=== PATIENT | female | born 1975 | race Caucasian/White ===

== ENCOUNTER 2024-04-23 03:18 | Emergency (ER) | payer OTHER, MEDICAID, SELFPAY ==
--- NOTE | ~2024-04-23 | CT_ITS ---
History: Fall PROCEDURE: CT cervical spine without intravenous contrast. COMPARISON: None TECHNIQUE: Multiple contiguous axial images of the cervical spine were performed without the administration of i ntravenous contrast. DLP: 395 mGy-cm FINDINGS: Straightening and slight reversal of the normal curvature of the cervical spine is identified, likely muscular in origin. No acute fractures are present. The bilateral lung apices are unremarkable. No soft tissue abnormality is present. The airway is unremarkable. Impression: Straightening and slight reversal of the normal curvature of the cervical spine, likely muscular in o rigin. No acute fracture. Reviewed, dictated and finalized at location A. CE ENGINEER Impression: Straightening and slight reversal of the normal curvature of the cervical spine , likely muscular in origin. No acute fracture.
--- NOTE | ~2024-04-23 | CT_ITS ---
History: Trauma PROCEDURE: CT head without contrast. COMPARISON: None TECHNIQUE: Axial imaging of the head performed from the skull base to the vertex without IV contrast. Sagittal a nd coronal reformations obtained. DLP: 681 mGy-cm FINDINGS: The ventricles are normal in size, shape and position. There is no mass, mass effect or midline shift. There is no abnormal extra-axial fluid collection or intracranial hemorrhage. Visualized paranasal sinuses are clear. The mastoid air cells are well aerated. No acute displaced fractures within the overlying cranium. Right occipital scalp hematoma. Impression: Scalp hematoma without acute intracranial hemorrhage or suspicious mass effect. Reviewed, dictated and finalized at location A. NEERING WRITER Impression: Scalp hematoma without acute intracranial hemorrhage or suspicious mass effect.
[2024-04-23 03:25] VITALS: BP 134/98; PULSE 97; RESP 15; TEMP 36.6; O2SAT 100
--- NOTE | 2024-04-23 04:30 | ED_ITS ---
HPI - General Adult General Chief complaint: Fall Stated complaint: Fallx2, etoh, head injury Time Seen by Provider: 04/23/24 03:32 History of Present Illness HPI narrative: this is a 49-year-old female presenting ED after a ground level fall. Patient got intoxicated tonight drinking beers. She fell and struck her head without loss of consciousness. She then fell again striking the same spot causing a large hematoma with bleeding. She was then brought to the ED for evaluation. Patient denies any other complaints at this time. Related Data Home Medications ?Medication ?Instructions ?Recorded ?Confirmed ?Last Taken ?Type biotin 10,000 mcg capsule mcg PO DAILY 04/23/24 04/22/24 History cetirizine 10 mg tablet 10 mg PO DAILY PRN allergy symptoms 04/23/24 04/23/24 04/23/24 History omega 3-prr-has-fish oil 1,200 mg cap PO DAILY 04/23/24 04/23/24 History (144 mg-216 mg) capsule (Fish Oil) Allergies Allergy/AdvReac Type Severity Reaction Status Date / Time cisatracurium (From Nimbex) Allergy Mild Unknown Verified 04/23/24 04:05 clindamycin Allergy Mild Unknown Verified 04/23/24 04:05 dexamethasone Allergy Mild Unknown Verified 04/23/24 04:05 ketorolac (From Toradol) Allergy Mild Unknown Verified 04/23/24 04:05 propofol Allergy Mild Unknown Verified 04/23/24 04:05 sulfamethoxazole (From Allergy Mild Unknown Verified 04/23/24 04:05 Bactrim) trimethoprim (From Bactrim) Allergy Mild Unknown Verified 04/23/24 04:05 Exam Narrative: APPEARANCE: No apparent distress. Head: large hematoma with a 2 cm central laceration EYES: EOMI, NOSE: Atraumatic NECK: Trachea midline RESPIRATORY: No increased rate of breathing CTAB CARDIOVASCULAR: RRR, ABDOMINAL: Non-distended MUSCULOSKELETAl: No obvious deformities NEURO: Alert. Cranial nerves 2-12 grossly intact. Sensation light touch, motor function cerebellar function intact for 4 extremities. Gait exam was normal. SKIN:: Warm, dry. Normal color PSYCHIATRIC: Normal affect Course Vital Signs Vital signs: Vital Signs Temperature 97.8 F 04/23/24 03:25 Pulse Rate 97 04/23/24 03:25 Respiratory Rate 15 04/23/24 03:25 Blood Pressure 134/98 H 04/23/24 03:25 Pulse Oximetry 100 04/23/24 03:25 Oxygen Delivery Room Air 04/23/24 03:25 Temperature 97.8 F 04/23/24 03:25 Pulse Rate 97 04/23/24 03:25 Respiratory Rate 15 04/23/24 03:25 Blood Pressure 134/98 H 04/23/24 03:25 Pulse Oximetry 100 04/23/24 03:25 Oxygen Delivery Room Air 04/23/24 03:25 Procedures Laceration Laceration 1: Date: 04/23/24 Site: scalp Side (If applicable): right Size (cm): 2 Description: linear Depth: simple, single layer Local Anesthetic: lidocaine 1% Pre-repair: irrigated ====== Skin Level ====== Skin layer closed with: carol Number of sutures: 4 ====== Subcutaneous Layer ====== ====== Muscle Layer ====== ====== Tendon Layer ====== Medical Decision Making MDM Narrative Medical decision making narrative: -Course: 49-year-old intoxicated female presenting after 2 ground level falls. She has large hematoma laceration back or scalp. This was repaired with carol. CT head and C-spine were negative for acute injury. Patient will be discharged with primary care follow-up Vital Signs Vital Signs: Vital Signs Temperature 97.8 F 04/23/24 03:25 Pulse Rate 97 04/23/24 03:25 Respiratory Rate 15 04/23/24 03:25 Blood Pressure 134/98 H 04/23/24 03:25 Pulse Oximetry 100 04/23/24 03:25 Oxygen Delivery Room Air 04/23/24 03:25 Temperature 97.8 F 04/23/24 03:25 Pulse Rate 97 04/23/24 03:25 Respiratory Rate 15 04/23/24 03:25 Blood Pressure 134/98 H 04/23/24 03:25 Pulse Oximetry 100 04/23/24 03:25 Oxygen Delivery Room Air 04/23/24 03:25 Discharge Plan Discharge Clinical Impression: Fall, Elevated ETOH level, Hematoma, Laceration of scalp Patient Disposition: Home, Self-Care Condition: Stable Instructions: Antibiotic Form, Concussion (ED) Additional Instructions: You were seen in the emergency department after a fall. The carol need to be removed in 5-7 days. Please drink responsibly. Return if you develop new or worsening symptoms. Patient Language: Kyrgyz Prescriptions: No Action omega 3-ssi-bdh-fish oil [Fish Oil] 1,200 (144-216) mg capsule PO DAILY cetirizine 10 mg tablet 10 mg PO DAILY PRN (Reason: allergy symptoms) biotin 10,000 mcg capsule PO DAILY Follow-up/Referrals: UNKNOWN,DOCTOR [Primary Care Provider] -
[2024-04-23] MEDS: TETANUS,DIPHTHERIA,AC PERTUSSIS ADULT (0.5 ML) BOOSTRIX IM (05:07)
--- OUTSIDE RECORDS SUMMARY | 2024-04-27 09:49 | XMS_ITS | Clinical Summary ---
Author Organization [facility] Address [address] [place] [address] Care Team Providers Care Director Of Sports Medicine Name Role Phone Unavailable Primary Care Provider Unavailabl e Source Comments [facility],non-owned Affiliates and Associated Physician Practices is amultiple site organization consisting of ambulatory clinics and hospital sitesin [place], [place], [place] and [place]. This disclosure is being madepursuant to the Care Everywhere program and may not contain all information available regarding this patient. Last updated 17.[facility] Social History Tobacco Use Types Packs/Day Years Used Date Smoking Tobacco: Never Assessed Sex and Gender Information Value Date Recorded Sex Assigned at Not on file Gender Identity Not on file Sexual Orientation Not on file Plan of Treatment Health Maintenance Due Date Last Done Comments COLOGUARD (AGES 45-75) - COL ON CA SCREENING 1974 COLON MONITORING 1974 COLONOSCOPY - COLON CA SCREENING 1974 CT COLONOGRAPHY - COLON CA SCREENING 1974 Colorectal Cancer Screening 1974 FIT - COLON CA SCREENING 1974 FLEX SIG - COLON CA SCREENING 1974 LIPID TESTING 1974 MAMMOGRAM 1974 PAP SMEAR 1974 HIV SCREENING 1989 HEPATITIS C SCREENING 01/11/1992 DTAP/TDAP/TD VACCINES (1 - Tdap) 1993 HEPATITIS B VACCINE (1 of 3 - 19+ 3-dose series) 1993 COVID-19 VACCINE ( - 2023-2 5 season) 2023 INFLUENZA VACCINE (#1) 2023 PNEUMOCOCCAL VACCINE 50+ (1 of 1 - PCV) 01/16/2024 ZOSTER VACCINE (1 of 2) 01/16/2024 DEPRESSION SCREENING 04/05/2024 HIB VACCINE Aged Out No longer eligi ble based on patient's age to complete this topic HPV VACCINE Aged Out No longer eligi ble based on patient's age to complete this topic MENINGOCOCCAL (Group B) VACCINE Aged Out No longer eligible based on patient's age to complete this topic MENINGOCOCCAL VACCINE Aged Out No martha juan eligible based on patient's age to complete this topic PNEUMOCOCCAL VACCINE Aged Out No long er eligible based on patient's age to complete this topic
--- OUTSIDE RECORDS SUMMARY | 2024-04-27 09:49 | XMS_ITS | Clinical Summary ---
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
--- OUTSIDE RECORDS SUMMARY | 2024-04-27 09:49 | XMS_ITS | Clinical Summary ---
Author Organization [facility] Address [address] [place] [address] Care Team Providers Care Entertainment Production Professional Name Role Phone Bessy Sepulveda APN Primary Care Provider [phone] Source Comments This disclosure is being made pursuant to the eBrevia program and maynot contain all information available regarding this patient.[facility] Allergies Active Allergy Reactions Criticality Noted Date Comments Aspirin Other (See Comments) 02/02/2014 Sulfamethoxazole-Trimethoprim Hives High 2016 Clindamycin Hives High 01/02/2020 Dexamethasone Hives High 03/25/2020 Ketorolac Tromethamine Hives High 02/02/2014 Atracurium Hypotension High 09/08/2016 Propofol Hypotension High 09/08/2016 Medications Monroe-3 Fatty Acids (FISH OIL PO) Take 200 mg by mouth 2 (two) times daily. Active Multiple Vitamins-Minera ls (MULTIVITAMIN ADULT PO) Take 1 capsule by mouth daily. Active Magnesium Hydroxide (MAGNESIA PO) Take 1 tablet by mouth daily. Active Ascorbic Acid (VITAMIN C) 500 MG tablet Take 500 mg by mouth daily. Active calcium carbonate-vitam in D 600-200 MG-UNIT TABS per tablet Take 1 tablet by mouth daily. Active vitamin D3 (CHOLECALCIFERO L) 125 MCG (5000 UT) TABS tablet Take 250 mcg by mouth daily. Active fluticasone NASAL (FLONASE) 50 MCG/ACT nasal spray 2 (two) sprays by Nasal route daily. to each nostril 16 g 1 1 Active levocetirizine (XYZAL) 5 MG tablet Take 5 mg by mouth daily. Active zinc sulfate (ZINCATE) 220 (50 Zn) MG capsule Take 220 mg by mouth daily. Active Turmeric 500 MG CAPS Take 1 capsule by mouth daily. Active pyridoxine (B-6) 100 MG tablet Take 100 mg by mouth daily. Active RHODIOLA ROSEA PO Take 500 mg by mouth daily. Active Bacillus Coagulans-Inuli n (PROBIOTIC-PREB IOTIC PO) Take 2 each by mouth daily. Active ASHWAGANDHA PO Take 1,500 mg by mouth daily. Active ELDERBERRY PO Take 200 mg by mouth daily. Active nystatin (MYCOSTATIN) powder Apply topically 3 (three) times daily. To affected area on abdomen. 60 g 3 Active nystatin (MYCOSTATIN) cream Apply topically 2 (two) times daily. to affected area. Continue until rash has resolved for 2-3 days. 30 g 1 3 Active triamcinolone (KENALOG) 0.1 % cream Apply topically 2 (two) times daily as needed (itching/rash chest and abdomen/hips) . Apply to affected area. 80 g 1 3 Active lansoprazole (PREVACID) 30 MG capsule Take 1 (one) capsule by mouth daily. 90 capsule 1 3 Active montelukast (SINGULAIR) 10 MG tablet TAKE 1 TABLET BY MOUTH NIGHTLY 30 tablet 11 4 Active desloratadine (CLARINEX) 5 MG tablet TAKE ONE TABLET BY MOUTH EVERY DAY 90 tablet 1 4 Active Insulin Pen Needle 32G X 6 MM MISC To use with saxenda 30 each 3 4 Active topiramate (TOPAMAX) 50 MG tablet Take 1.5 tablets (75 mg total) by mouth 2 (two) times daily. 270 tablet 1 4 Active Liraglutide -Weight Management (Saxenda) 18 MG/3ML SOPNIndications :Class 3 severe obesity without serious comorbidity with body mass index (BMI) of 40.0 to 44.9 in adult, unspecified obesity type,Weight loss counseling, encounter for Inject 3 (three) mg into the skin daily. 15 mL 1 4 Active Insulin Pen Needle 32G X 6 MM MISC To use with saxenda 30 each 3 4 03/30/20 24 Discontinu ed(*Reorde r (sends cancel message to pharmacy)) topiramate (TOPAMAX) 50 MG tablet Take 1.5 tablets (75 mg total) by mouth 2 (two) times daily. 270 tablet 1 4 03/30/20 24 Discontinu ed(*Reorde r (sends cancel message to pharmacy)) Liraglutide -Weight Management (Saxenda) 18 MG/3ML SOPNIndications :Class 3 severe obesity without serious comorbidity with body mass index (BMI) of 40.0 to 44.9 in adult, unspecified obesity type,Weight loss counseling, encounter for Inject 3 (three) mg into the skin daily. 15 mL 1 4 03/30/20 24 Discontinu ed(*Reorde r (sends cancel message to pharmacy)) Active Problems Problem Noted Date Diagnosed Date Environmental and seasonal allergies 03/01/2023 Strain of back 10/29/2022 DDD (degenerative disc disease), lumbar 10/30/19 23 Diverticulosis 05/25/2022 Allergic rhinoconjunctivitis (August 2021) 08/29/19 22 Flank pain, chronic 09/09/2016 Microhematuria 09/09/2016 History of urinary tract infection 11/05/2011 Overview (06/29/2014): Overview: Severity:moderate Chronicity:acute VEENA COCHRAN Vitamin D deficiency 11/05/2011 Overview (06/29/2014): Overview: VEENA COCHRAN Low back pain 10/19/2011 Overview (06/29/2014): Overview: at end of workday NOHEMI ZUÑIGA Hypertrophic and atrophic condition of skin 05/07 Overview (06/29/2014): Overview: LUCY CROSS MD Esophageal reflux 10/12/2008 Overview (06/29/2014): Overview: LUCY CROSS MD Plantar fascial fibromatosis 10/12/2008 Overview (06/29/2014): Overview: Severity:not controlled Chronicity:chronic LUCY CROSS MD Resolved Problems Problem Noted Date Diagnosed Date Resolved Date Chronic right-sided low back pain with right-sided sciatica 11/23/2022 12/30/2022 Poor posture 11/23/2022 12/30/2022 Pelvic obliquity 11/23/2022 12/30/2022 Muscle weakness (generalized) 11/23/2022 12/30/2022 Muscle tightness 11/23/2022 12/30/2022 Pain aggravated by sitting 11/23/2022 0 12/30/2022 Allergic rhinitis 05/09/2010 08/28/2021 Overview (06/29/2014): Overview: Severity:moderate Chronicity:acute CORY ESPINOZA MD Allergic state 01/31/2010 08/28/2021 Overview (06/29/2014): Overview: Severity:moderate Chronicity:acute CORY ESPINOZA MD Hypothyroidism 10/12/2008 03/30/2019 Overview (06/29/2014): Overview: LUCY CROSS MD Encounters Date Type Department Care Team Description 03/30/[address] [phone] Bessy Sepulveda, MACHINE HELPER Class 3 severe obesity without serious comorbidity with body mass index (BMI) of 40.0 to 44.9 in adult, unspecified obesity type; Weight loss counseling, encounter for 03/30/2024 Refill [facility] [address] [place] [address] Claudy Segovia MD 03/23/[address] [phone] Sarah Armendariz RN PA saxenda 03/01/[address] [place] [phone] Bessy Sepulveda APN 03/01/2024 Refill [facility] [address] [place] [address] Claudy Segovia MD 02/29/2024 Orders Only [facility] Centralized Scanning Provider, Not In System 02/14/2024 11:00 AM [facility] Office Visit [address] [phone] Bessy Sepulveda APN Encounter for medication review and counseling (Primary Dx); Weight loss counseling, encounter for; BMI 40.0-44.9, adult 01/31/2024 Orders Only [address] [phone] Bessy Sepulveda APN Class 3 severe obesity without serious comorbidity with body mass index (BMI) of 40.0 to 44.9 in adult, unspecified obesity type; Weight loss counseling, encounter for 01/31/2024 Orders Only [address] [phone] Bessy Sepulveda APN from Last 3 Months Immunizations Immunization Administration Dates Next Due Tetanus, diphtheria and acel lular pertussis (Adacel)Tdap 03/30/2019 Family History Medical History Relation Name Comments COPD Mother Lung cancer Mother Uterine cancer Mother Relation Name Status Comments Brother Alive Father Alive Mother Alive Sister Alive Son Alive Social History Tobacco Use Types Packs/Day Years Used Date Smoking Tobacco: Some Days Cigarettes 0.3 15 Smokeless Tobacco: Never Tobacco Cessation:Ready to Q uit: Not Asked; Counseling Given: Yes Alcohol Use Standard Drinks/Week Comments Not Currently 1 (1 standard drink = 0.6 oz pure alcohol) Alcoholic Drinks/day: CURRENT ALCOHOL USER PHQ-2 Answer Date Recorded PHQ-2 Total Score 0 07/19/2023 Comments No Sex and Gender Information Value Date Recorded Sex Assigned at Not on file Legal Sex Female 2:33 AM CDT Gender Identity Not on file Sexual Orientation Not on file Last Filed Vital Signs Vital Sign Reading Time Taken Comments Blood Pressure 110/80 02/14/2024 11:03 AM [facility] Pulse 105 02/14/2024 11:03 AM [facility] Temperature 35.9 ??C (96.7 ??F) 02/14/2024 11:[address] Respiratory Rate 20 02/14/2024 11:03 AM [facility] Oxygen Saturation 99% 02/14/2024 11:03 AM [facility] Inhaled Oxygen Concentration - - Weight 114.3 kg (252 lb) 02/14/2024 11:03 AM [facility] Height 168.1 cm (5' 6.2 ) 07/19/2023 8:09 AM CDT Body Mass Index 40.43 07/19/2023 8:09 AM CDT Plan of Treatment Upcoming Encounters Date Type Department Care Team (Late st Contact Info) Description 04/27/2024 4:00 PM [facility] Appointment [facility] [address] [place] [phone] Bessy Sepulveda APN [address] [place] [address] 05/16/2024 3:30 PM [facility] Appointment [facility] [address] [place] [address] Bessy Sepulveda APN [address] [place] [address] 09/18/2024 11:15 AM CDT Appointment [facility] [address] [place] [phone] Aleksandra Mcpherson MD [address] [place] [address] 09/18/2024 11:50 AM CDT Appointment [facility] [address] [place] [phone] Bessy Sepulveda MACHINE HELPER [address] [place] [address] Encounter for screening mammogram for malignant neoplasm of breast 11/09/2024 11:45 AM CDT Appointment [facility] Dermatology [address] [place] [phone] [place] [address] [place] [phone] 11/09/2024 1:15 PM CDT Appointment [facility] [address] [place] [phone] Monico Freeman MD [address] [place] [address] Health Maintenance Due Date Last Done Comments CT Colonography 1974 Fecal DNA Test 1974 Sigmoidoscopy 1974 Pneumococcal Vaccines 50+ (1 of 2 - PCV) 1993 FOBT/FIT 1994 COVID-19 Vaccine ( - season) 2023 Influenza Vaccine (#1) 2023 Zoster (Shingles) Vaccine 50+ (1 of 2) 01/16/2024 Lab-Diabetes Screening 07/18/2024 , 07/19/2023, 07/19/2023, Additional history exists Pap Smear 10/10/2024 10/10/2021, 02/10/2021 Annual Wellness Visit 01/18/2025 01/19/2024 , 11/11/2023, 07/19/2023, Additional history exists Breast Cancer Screening-Mammogram 01/18/2026 01/19/2024, 09/17/2022, 02/19/2022 Cervical Cancer Screening 02/10/2026 HPV Testing 02/10/2026 02/10/2021 Lab-Cholesterol Screening 07/18/20282023, 02/19/2022, 03/26/2021, Additional history exists Tetanus/Pertussis Vaccine Teen/Adult (2 - Td or Tdap) 03/30/2029 03/30/2019 Colonoscopy 05/25/2032 05/25/2022 Colorectal Cancer Screening 05/25/2032 RSV Adult (1 - 1-dose 75+ series) 2049 Lab-Hepatitis C Screening Completed 03/26/2021 HIB Vaccine Aged Out No longer eligi ble based on patient's age to complete this topic HPV Vaccine (F:9-26YO,M: 9-22) Aged Out No longer eligible based on patient's age to complete this topic Hepatitis A Vaccine Aged Out No longe r eligible based on patient's age to complete this topic Hepatitis B Vaccine Discontinued IPV Vaccine Aged Out No longer eligi ble based on patient's age to complete this topic Meningococcal Conjugate Vaccine Aged Out No longer eligible based on patient's age to complete this topic RSV < 20 Months Aged Out No longer el igible based on patient's age to complete this topic Procedures Procedure Name Priority Date/Time Associated Diagnosis Comments MM DIGITAL BILATERAL SCREENING MAMMOGRAM Routine 01/19/2024 3:22 PM CDT Encounter for screening mammogram for malignant neoplasm of breast LIPID PANEL Routine 07/19/2023 8:52 AM CDT Wellness examination HEMOGLOBIN A1C Routine 07/19/2023 8:52 AM CDT Screening for diabetes mellitus HM COLONOSCOPY Routine 05/25/2022 LIQUID-BASED PAP SMEAR, SCREENING Routine 10/10/2021 12:17 PM CDT HEPATITIS PANEL, ACUTE Routine 03/26/2021 9:41 AM [facility] Examination, medical, general Screening for STD (sexually transmitted disease) THINPREP IMAGING PAP AND HPV MRNA E6/E7 Routine 02/10/2021 5:04 PM [facility] Encntr for control systems specialist exam (general) (routine) w/o abn findings from Last 3 Months or Most Recently Relevant to Health Maintenance Results * MM Digital Bilateral Screening Mammogram (01/19/2024 3:22 PM CDT) Anatomical Region Laterality Modality Breast Bilateral Mammography 01/19/2024 3:22 PM CDT Narrative 01/24/2024 4:14 PM CDT [facility] [address] [place] [phone] 01/19/2024 Clinical History: Patient is 49 years old and is seen for screening. Risk: Roxyer Christianzick Breast Cancer Score: 7.8% Lifetime Risk- Average Risk Digital technique utilized. 3-D tomosynthesis and synthesized 2-D images were acquired. DIGITAL MAMMOGRAM: R2 CAD utilized. The present examination has been compared to prior imaging studies performed at [facility] on 02/02/2020, 02/03/2021 and 02/19/2022, and at [facility] on 09/17/2022. The following views were performed: Bilateral craniocaudal with tomosynthesis and bilateral mediolateral oblique with tomosynthesis. There are scattered areas of fibroglandular density. There are no suspicious findings in either breast. ??Benign finding(s) are noted. ?? There has been no significant interval change. IMPRESSION: There is no mammographic evidence of malignancy. A routine follow-up mammogram in 1 year is recommended or according to the [employer] recommendations. BIRADS Assessment 2: Benign finding. Lay Letter #1. THIS IS AN ELECTRONICALLY SIGNED REPORT READING PHYSICIAN: Yasmani Medrano MD 01/24/2024 at 04:13 PM Procedure Note Yasmani Medrano MD - 01/24/2024 [facility] [address] [place] [address] [phone] 01/19/2024 Clinical History: Patient is 49 years old and is seen for screening. Risk: Estefani Gonzaleszick Breast Cancer Score: 7.8% Lifetime Risk- Average Risk Digital technique utilized. 3-D tomosynthesis and synthesized 2-D images were acquired. DIGITAL MAMMOGRAM: R2 CAD utilized. The present examination has been compared to prior imaging studies performed at [facility] on 02/02/2020, 02/03/2021 and 02/19/2022, and at [facility] on 09/17/2022. The following views were performed: Bilateral craniocaudal with tomosynthesis and bilateral mediolateral oblique with tomosynthesis. There are scattered areas of fibroglandular density. There are no suspicious findings in either breast. Benign finding(s) are noted. There has been no significant interval change. IMPRESSION: There is no mammographic evidence of malignancy. A routine follow-up mammogram in 1 year is recommended or according to the [employer] recommendations. BIRADS Assessment 2: Benign finding. Lay Letter #1. THIS IS AN ELECTRONICALLY SIGNED REPORT READING PHYSICIAN: Yasmani Medrano MD 01/24/2024 at 04:13 PM Bessy Sepulveda APN IMG MAMMOGRAPHY ORDERABLES F inal Result * Hemoglobin A1c (07/19/2023 8:52 AM CDT) Hemoglobin A1C 5.2 % [facility] Comment: Nondiabetic Patient: ? 4.0 - 5.6 % Prediabetic Patient: ? 5.7 - 6.4 % Diabetic ?Patient: ?>= 6.5 % Controlled Diabetic Patient: ?? < 7.0 % Clinical correlation is essential Estimated Avg Glucose 103 mg/dl [facility] Blood 07/19/2023 8:52 AM CDT 07/19/2023 8:52 AM CDT Comment:Fastin.0 hours Narrative [facility] - 07/19/2023 3:51 PM CDT Testing performed at [facility], [address] [place] [address]. CLIA [id number] Phone [phone] Ext [phone] Astronomy Teacher Cass Mckeon MD Bessy Sepulveda APN LAB BLOOD ORDERABLES Final R esult [facility] [address] [place] [address] [phone] * (ABNORMAL) Lipid panel (07/19/2023 8:52 AM CDT) Cholesterol 191 0 - 200 mg/dL [facility] Comment:Cholesterol preferre d <200 mg/dL. Clinical correlation is essential. Triglycerides 231(H) 0 - 200 mg/dL [facility] HDL Cholesterol 65 >60 mg/dL [facility] Comment:High HDL cholesterol , (Negative Risk Factor for CHD). LDL, Calculated 79.8 mg/dL [facility] Comment: <100 ?Optimal 100-129 ? Near Optimal/Above Optimal 130-159 ? Borderline High 160-189 ? High >or =190 ?Very High Cholesterol/HDL Ratio 2.9 [facility] Blood 07/19/2023 8:52 AM CDT 07/19/2023 8:52 AM CDT Comment:Fastin.0 hours Narrative [facility] - 07/19/2023 4:15 PM CDT Testing performed at [facility], [address] [place] [address]. CLIA [id number] Phone [phone] Ext [phone] Astronomy Teacher Cass Mckeon MD us Bessy Sepulveda APN LAB BLOOD ORDERABLES Final R esult Performing Organization Address [facility]/ZIP Co de Phone Number [facility] [address] [place] [address] [phone] * HM Colonoscopy (05/25/2022) us Tato Corea II, DO HEALTH MAINTENANCE F inal Result Performing Organization Address [facility]/ZIP Co de Phone Number [facility] * Liquid-Based Pap Smear, Screening (10/10/2021 12:17 PM CDT) Genital CERVIX UTERI STRUCTURE / Unknown us Not In System Provider PATHOLOGY/CYTOLOGY ORDERA BLES Final Result Performing Organization Address [facility]/ZIP Co de Phone Number [facility] Shamar at [address] * Hepatitis panel, acute (03/26/2021 9:41 AM [facility]) Hep A IgM Confirm Nonreactive Nonreactive [facility] Hep B Core IgM Nonreactive Nonreactive [facility] Hep B Surface Ag Nonreactive Nonreactive [facility] Hep C Ab Nonreactive Nonreactive [facility] Blood 03/26/2021 9:41 AM [facility] 03/26/2021 2:29 PM [facility] Comment:Fastin.0 hours Narrative [facility] - 03/26/2021 3:42 PM [facility] Testing performed at [facility], [address] [place] [address]. CLIA [id number] Phone [phone] Ext [phone] ??Astronomy Teacher Claudy Bragg MD us Mateo Real DO LAB BLOOD ORDERABLES Final Resul t [facility] [address] [place] [address] [phone] * Thinprep Imaging Pap And HPV Mrna E6/E7 (02/10/2021 5:04 PM [facility]) Clinical Information: Information not provided [facility] Comment:[SL] Date LMP UNKNOWN [facility] Comment:[SL] Previous PAP UNKNOWN [facility] Comment:[SL] Prev BX NO [facility] Comment:[SL] Surepath Source Cervix [facility] Comment:[SL] Specimen Adequacy Satisfactory for evaluation. Endocervical/sandoval sformation zone component present. Age and/or menstrual status not provided [facility] Comment:[SL] Interp/Result Negative for intraepithelial lesion or malignancy. [facility] Comment:[SL] Comment: This case could not be evaluated with computer assisted technology. The slide was manually screened according to routine procedures. [facility] Comment:[SL] Waybill Clerk G, CT(ASCP) CT screening location: [place] [address] [facility] Comment:[SL] See Note SEE NOTE [facility] Comment: EXPLANATORY NOTE: The Pap is a screening test for cervical cancer. It is not a diagnostic test and is subject to false negative and false positive results. It is most reliable when a satisfactory sample, regularly obtained, is submitted with relevant clinical findings and history, and when the Pap result is evaluated along with historic and current clinical information. [] HPV mRNA E6/E7 Not Detected Not Detected [facility] Comment: Methodology: Gallery Or Museum Guide-Mediated Amplification This assay detects E6/E7 viral messenger RNA (mRNA) from 14 high-risk HPV types (16,18,31,33,35,39,45,51,52,56,58,59,66,68). The analytical performance characteristics of this assay have been determined by [email or web address]. The modifications have not been cleared or approved by the FDA. This assay has been validated pursuant to the CLIA regulations and is used for clinical purposes. For additional information, please refer to http://education.Holidog/faq/ZHH684z8 (This link if provided for information/ educational purposes only.) [KS] CERVIX UTERI STRUCTURE / Unknown 02/10/2021 5:04 PM [facility] 02/12/2021 3:10 AM [facility] Comment:- Narrative [facility] - 02/14/2021 11:30 AM [facility] Testing performed at: [facility], [address] [place], [address], Astronomy Teacher: Mike Linares D.O., MPH Testing performed at: [email or web address], [address], [place], [address], Astronomy Teacher: Niesha Rankin Bessy Sepulveda APN PATHOLOGY/CYTOLOGY ORDERABLE S Final Result [facility] [address] [phone] from Last 3 Months or Most Recently Relevant to Health Maintenance Insurance [facility] Care Teams Entertainment Production Professional Relationship Specialty Start Date End Date Bessy Sepulveda APN [address] [place] [phone] PCP - General Family Medicine 01/07/22
--- OUTSIDE RECORDS SUMMARY | 2024-04-27 09:49 | XMS_ITS | Patient Health Summary ---
Author Organization [facility] Address [address] [facility] [place] [address] Care Team Providers Care Hide Paster Name Role Phone Unavailable Primary Care Provider Unavailabl e Note from [facility],non-owned Affiliates and Associated Physician Practices is amultiple site organization consisting of ambulatory clinics and hospital sitesin [place], [place], [place] and [place]. This disclosure is being madepursuant to the Care Everywhere program and may not contain all information available regarding this patient. Last updated 17.[facility] Social History Tobacco Use Types Packs/Day Years Used Date Smoking Tobacco: Never Assessed Sex and Gender Information Value Date Recorded Sex Assigned at Not on file Gender Identity Not on file Sexual Orientation Not on file Procedures * DERMATOPATHOLOGY(Performed 01/19/2024) Results * DERMATOPATHOLOGY (01/19/2024 12:00 AM CDT) Case Report Dermatopathology Report ? Case: [id number] ? Authorizing Provider: ??Sarah Toure MD ?Collected: ? 01/19/2024 12:00 AM ? Ordering Location: ? [facility] - ??Received: ?01/20/2024 08:49 AM ? DermPath Lab ? Pathologist: ? Shayna Sanchez MD ? Specimen: ?Skin, right axilla ? 1:54 PM T DERMATOPATHOLOGY LABORATORY Final Diagnosis Specimen A. SKIN, right axilla: EPIDERMOID CYST (L72.0) 1:54 PM T DERMATOPATHOLOGY LABORATORY Clinical History EIC 1:54 PM T DERMATOPATHOLOGY LABORATORY Gross Description Specimen A: Received is one formalin filled container labeled with the patient's name and designated right axilla. The specimen consists of a 7x1x8 mm piece of skin. The specimen is serially sectioned and a territory account representative section is submitted in cassette 1. Jar 1. 1:54 PM T DERMATOPATHOLOGY LABORATORY Microscopic Description Specimen A. SKIN, right axilla: Within the dermis, there is a space lined by epithelium that resembles normal epidermis and the infundibular portion of the hair follicle. 1:54 PM T DERMATOPATHOLOGY LABORATORY Disclaimer An external and internal positive and negative controls are appropriate for the histochemical, immunohistochemical and immunofluorescence stain(s) in this case (if any), except where stated explicitly. The performance characteristics of the stain(s) cited in this report were developed and its performance characteristic determined by the Dermatopathology Laboratory at [facility], directed by Dr. Ha Cain. These tests need not be, and therefore are not, approved by the [place] Food and Drug Administration. The tests are used for clinical purposes. Billing Codes Specimen Charges Stain Charges 78216 1 1:54 PM CDT DERMATOPATHOLOGY LABORATORY Embedded Images 1:54 PM CDT DERMATOPATHOLOGY LABORATORY Pathology/Cytolog y TISSUE SPECIMEN FROM SKIN / Unknown 01/19/2024 01/20/2024 8:49 AM CDT Sarah Toure MD LAB - PATHOLOGY/CYTO LOGY ORDERABLES DERMATOPATHOLOGY LABORATORY [facility] - Department of Dermatology [facility] [address] [place] [address], [address] [phone]
--- OUTSIDE RECORDS SUMMARY | 2024-04-27 09:49 | XMS_ITS | Encounter Summary ---
Author Organization [facility] Address [address] [place] [address] Care Team Providers Care Horticultural Specialty Grower Inside Name Role Phone Unavailable Primary Care Provider Unavailabl e Encounter Details Date Type Department Care Team (Late st Contact Info) Description 01/20/2024 Lab Requisition [facility] - DermPath Lab [address] [facility] [place] [address] Sarah Toure MD [address] [place] [address] Social History Tobacco Use Types Packs/Day Years Used Date Smoking Tobacco: Never Assessed Sex and Gender Information Value Date Recorded Sex Assigned at Not on file Gender Identity Not on file Sexual Orientation Not on file documented as of this encounter Plan of Treatment Not on file documented as of this encounter Procedures Procedure Name Priority Date/Time Associated Diagnosis Comments DERMATOPATHOLOGY Routine 01/19/2024 12:0 0 AM CDT documented in this encounter Results * DERMATOPATHOLOGY (01/19/2024 12:00 AM CDT) Case Report Dermatopathology Report ? Case: [id number] ? Authorizing Provider: ??Sarah Toure MD ?Collected: ? 01/19/2024 12:00 AM ? Ordering Location: ? [facility] - ??Received: ?01/20/2024 08:49 AM ? DermPath Lab ? Pathologist: ? Shayna Sanchez MD ? Specimen: ?Skin, right axilla ? 1:54 PM CDT DERMATOPATHOLOGY LABORATORY Final Diagnosis Specimen A. SKIN, right axilla: EPIDERMOID CYST (L72.0) 1:54 PM [facility] DERMATOPATHOLOGY LABORATORY Clinical History EIC 1:54 PM CDT DERMATOPATHOLOGY LABORATORY Gross Description Specimen A: Received is one formalin filled container labeled with the patient's name and designated right axilla. The specimen consists of a 7x1x8 mm piece of skin. The specimen is serially sectioned and a financial service representative section is submitted in cassette 1. [...] characteristic determined by the Dermatopathology Laboratory at [facility], directed by Dr. Ha Cain. These tests need not be, and therefore are not, approved by the [place] Food and Drug Administration. The tests are used for clinical purposes. Billing Codes Specimen Charges Stain Charges 22688 1 4 1:54 PM CDT DERMATOPATHOLOGY LABORATORY Embedded Images 1:54 PM CDT DERMATOPATHOLOGY LABORATORY Pathology/Cytolog y TISSUE SPECIMEN FROM SKIN / Unknown 01/19/2024 01/20/2024 8:49 AM CDT Sarah Toure MD LAB - PATHOLOGY/CYTO LOGY ORDERABLES DERMATOPATHOLOGY LABORATORY [facility] - Department of Dermatology [address], [address] [phone] documented in this encounter Visit Diagnoses Not on filedocumented in this encounter
--- OUTSIDE RECORDS SUMMARY | 2024-04-27 09:49 | XMS_ITS | Clinical Summary ---
Author Organization [facility] Address [facility] [facility]. [place], [place] [address] [place] [id number] Care Team Providers Care Hand Ii Cutter Name Role Phone Unavailable Primary Care Provider Unavailabl e Social History Tobacco Use Types Packs/Day Years Used Date Smoking Tobacco: Smoker, Current Status Unknown Comments Unknown Sex and Gender Information Value Date Recorded Sex Assigned at Not on file Legal Sex Female 9:38 PM CDT Gender Identity Not on file Sexual Orientation Not on file Last Filed Vital Signs Vital Sign Reading Time Taken Comments Blood Pressure 116/80 08/19/2016 3:32 PM CDT Pulse 88 08/19/2016 3:32 PM CDT Temperature - - Respiratory Rate - - Oxygen Saturation - - Inhaled Oxygen Concentration - - Weight 128.4 kg (283 lb) 08/19/2016 3:32 PM CDT Height 166.4 cm (5' 5.5 ) 08/19/2016 3:32 PM CDT Body Mass Index 46.38 08/19/2016 3:32 PM CDT Plan of Treatment Health Maintenance Due Date Last Done Comments Cervical Cancer Screening Pa p Smear (Age 30 to 64) Every 3 Years 1974 Colorectal Cancer Screening Colonoscopy (10 Years) 1974 Annual Physical 1977 Hepatitis C 01/16/1992 DTaP, Tdap and Td Vaccines ( 1 - Tdap) 1993 Hepatitis B Vaccines (1 of 3 - 19+ 3-dose series) 1993 Cervical Cancer Screening Pa p with HPV Testing (Age 30 to 64) Every 5 Years 01/16/2004 Cervical Cancer Screening with HPV 01/16/2004 Mammogram Screening 2014 COVID-19 Vaccine (2023-2 5 season) 2023 Influenza Adult (#1) 2024 Zoster Vaccines (1 of 2) 01/16/2024 Meningococcal B Vaccine Aged Out No l onger eligible based on patient's age to complete this topic Meningococcal Vaccine Aged Out No martha juan eligible based on patient's age to complete this topic Pneumococcal Vaccine: Pediat rics (0 to 5 Years) and At-Risk Patients (6 to 64 Years) Aged Out No longer eligible b ased on patient's age to complete this topic RSV Immunizations Under 20 Months Aged Out No longer eligible based on patient's age to complete this topic
--- OUTSIDE RECORDS SUMMARY | 2024-04-27 09:49 | XMS_ITS | Referral Summary ---
Author Organization [facility] Address [address] [facility] [place] [address] Care Team Providers Care Order Picker Name Role Phone Unavailable Primary Care Provider Unavailabl e Source Comments [facility],non-owned Affiliates and Associated Physician Practices is amultiple site organization consisting of ambulatory clinics and hospital sitesin [place], [place], [place] and [place]. This disclosure is being madepursuant to the Care Everywhere program and may not contain all information available regarding this patient. Last updated 17.[facility] Social History Tobacco Use Types Packs/Day Years Used Date Smoking Tobacco: Never Assessed Sex and Gender Information Value Date Recorded Sex Assigned at Not on file Gender Identity Not on file Sexual Orientation Not on file Plan of Treatment Not on file
--- OUTSIDE RECORDS SUMMARY | 2024-04-27 09:50 | XMS_ITS | Encounter Summary ---
Author Organization [facility] Address [address] [place] [address] Care Team Providers Care Machine Cloth Examiner Name Role Phone Bessy Sepulveda APN Primary Care Provider [phone] Reason for Visit * Reason Onset Date Comments Medication Refill 03/30/2024 Encounter Details Date Type Department Care Team ([facility] Contact Info) Description 03/30/2024 Refill [facility] Allergy [address] [place] [address] Claudy Segovia MD [address] [place] [phone] Social History Tobacco Use Types Packs/Day Years Used Date Smoking Tobacco: Some Days Cigarettes 0.3 15 Smokeless Tobacco: Never Alcohol Use Standard Drinks/Week Comments Not Currently [...] on file documented as of this encounter Miscellaneous Notes * Telephone Encounter - Alicia Avina LPN - 03/31/2024 9:59 AM CST Patient was last seen on 08/28/21 and medication was last filled on 03/01/24. NUE OFFICER documented in this encounter Plan of Treatment Upcoming Encounters Date Type Department Care Team (Late st Contact Info) Description 04/27/2024 4:00 PM REVENUE OFFICER Appointment [facility] [address] [place] [address] Bessy Sepulveda, NAPPER GRINDER [address] [place] [address] 05/16/2024 3:30 PM REVENUE OFFICER Appointment [facility] [address] [place] [address] Bessy Sepulveda, NAPPER GRINDER [address] [place] [address] 09/18/2024 11:15 AM CDT Appointment [facility] [address] [place] [phone] Aleksandra Mcpherson MD [address] [place] [phone] 09/18/2024 11:50 AM CDT Appointment [facility] [address] [place] [phone] Bessy Sepulveda, NAPPER GRINDER [address] [place] [address] Encounter for screening mammogram for malignant neoplasm of breast 11/09/2024 11:45 AM CDT Appointment [facility] Dermatology [address] [place] [phone] Leeanne Tucker MD [address] [place] [phone] 11/09/2024 1:15 PM CDT Appointment [facility] Urology [address] [place] [phone] Monico Freeman MD [address] [place] [address] documented as of this encounter Visit Diagnoses Not on filedocumented in this encounter Additional Health Concerns Assessment Noted Time PHQ-9 Depression Total Score: 0 01/02/20 20 3:29 PM CDT A Body Mass Index follow-up plan has been documented for the patient 09/21/2018 4:07 PM CDT documented as of this encounter Care Teams Machine Cloth Examiner Relationship Specialty Start Date End Date Bessy Sepulveda APN [address] [place] [phone] PCP - General Family Medicine 01/07/22 documented as of this encounter
== END 2024-04-23 05:15 | disposition home or self-care (01) ==
PROVIDERS: Emergency Provider Emergency Medicine
DX: S01.01XA Laceration without foreign body of scalp, initial encounter (principal); F10.929 Alcohol use, unspecified with intoxication, unspecified; Y90.9 Presence of alcohol in blood, level not specified; Z23 Encounter for immunization; W19.XXXA Unspecified fall, initial encounter
CPT/HCPCS: 12001; 70450; 72125; 90471; 90715; 99284; A9270; J2003